=== PATIENT | male | born 1950 | race Caucasian/White ===

== ENCOUNTER 2018-03-11 11:13 | Inpatient (IN) | payer MEDICARE, BC ==
[2018-03-11] MEDS ORDERED: diPHENhydraMINE PO* 50 MG PO ONE (14:01)
--- NOTE | 2018-03-11 14:09 | ED ---
Abdominal Pain/Male - HPI Summary HPI Summary: A 67 y/o M presents to ED with c/o diffuse abd pain onset two days ago. Pt petted his cat two days ago. The pt and his had dewormed their cat on 03/06 using Profender, which is a topical medication. After touching the cat, the patient's hands became itchy. Pt also vomited large amounts of bile yesterday and today, has had diarrhea. He is bloated and has abd pain due to gas, and he is mostly releasing gas by belching and passing small amount of flatus. Pt experienced similar sx last year after deworming the cats. The spoke with [employer] help line ([phone]) this AM who stated the itchy hands were an allergic reaction, but they were unsure regarding the cause of the abd pain and vomiting and advised that he seek medical attention. Pt is s/p appendectomy. The pt denies previous colon surgeries, bowel obstruction, ulcers , GI bleed. He took Benadryl, GasX at 10:00 [employer]. He states he has not eaten for two days. Denies CP. Vital signs while in room: HR 91 bpm, BP 143/93. Home Medications Medication Instructions Recorded Confirmed Type Atorvastatin* 40 mg PO DAILY 03/11/18 03/11/18 History Dulaglutide (NF) [Trulicity (NF)] 1 dose WEEKLY 03/11/18 03/11/18 History Glimepiride (NF) 1 dose PO DAILY 03/11/18 03/11/18 History Hydrochlorothiazide TAB* 1 tab PO DAILY 03/11/18 03/11/18 History [Hydrodiuril TAB*] Metoprolol Succinate 100 mg PO DAILY 03/11/18 03/11/18 History metFORMIN* [Glucophage 1000 MG TAB 1 tab PO BID 03/11/18 03/11/18 History *] - History of Current Complaint Chief Complaint: EDAbdPain Stated Complaint: ABD PAIN Time Seen by Provider: 03/11/18 13:57 Hx Obtained From: Patient, Family/Creative Perfumer - Onset/Duration: Gradual Onset, Lasting Days, Still Present Timing: Constant Severity Initially: Moderate Severity Currently: Moderate Pain Intensity: 7 Pain Scale Used: 0-10 Numeric Location: Diffuse Radiates: No Character: Cramping, Other: - bloated Aggravating Factor(s): Nothing Alleviating Factor(s): Nothing Associated Signs And Symptoms: Positive: Vomiting, Diarrhea, Other - pos: itchy hands; gassy/belching;. Negative: Chest Pain Similar Episode/Dx As:: related to deworming cats and petting them after topical solution applied - Allergies/Home Medications Allergies/Adverse Reactions: Allergies Allergy/AdvReac Type Severity Reaction Status Date / Time No Known Allergies Allergy Verified 03/11/18 11:41 Home Medications: Home Medications Atorvastatin* 40 mg PO DAILY 03/11/18 [History Confirmed 03/11/18] Dulaglutide (NF) [Trulicity (NF)] 1 dose WEEKLY 03/11/18 [History Confirmed 05/28] Glimepiride (NF) 1 dose PO DAILY 03/11/18 [History Confirmed 03/11/18] Hydrochlorothiazide TAB* [Hydrodiuril TAB*] 1 tab PO DAILY 03/11/18 [History Confirmed 03/11/18] Metoprolol Succinate 100 mg PO DAILY 03/11/18 [History Confirmed 03/11/18] metFORMIN* [Glucophage 1000 MG TAB *] 1 tab PO BID 03/11/18 [History Confirmed 03/11/18] Aspirin 81 mg CHEW TAB* 81 mg PO DAILY 03/12/18 [History Confirmed 03/12/18] PMH/Surg Hx/FS Hx/Imm Hx Previously Healthy: No Endocrine/Hematology History: Reports: Hx Diabetes Cardiovascular History: Reports: Hx Hypercholesterolemia, Hx Hypertension - Surgical History Surgery Procedure, Year, and Place: appendectomy Infectious Disease History: No Infectious Disease History: Denies: Traveled Outside the [place] in Last 30 Days - Family History Known Family History: Positive: Cardiac Disease - mother - Social History Occupation: Employed Full-time Lives: With Family Alcohol Use: Rare Hx Substance Use: No Substance Use Type: Reports: None Hx Tobacco Use: No Smoking Status (MU): Never Smoked Tobacco Review of Systems Constitutional: Negative Negative: Chest Pain Respiratory: Negative Positive: Abdominal Pain, Vomiting, Diarrhea, Other - pos: bloated/gassy/ belching Positive: no symptoms reported Skin: Other - itching hands Neurological: Negative Psychological: Normal All Other Systems Reviewed And Are Negative: Yes Physical Exam - Summary Physical Exam Summary: Appearance: Ill-appearing, moderate pain distress, obese, vomited approx 1350cc bilious liquid in ED at one time Skin: Warm, color reflects adequate perfusion, dry, mild erythema bilat hands, no petechiae or macular papular rash Head: Normal Head/Face inspection, atraumatic Eyes: Conjunctiva clear ENT: Normal inspection Neck: Supple, no nodes, no JVD Respiratory: Lungs clear, normal breath sounds, no respiratory distress Cardio: RRR, No murmur, pulses normal, brisk capillary refill Abdomen: Distended, good bowel sounds, diffuse tenderness, no masses, no rebound Bowel sounds: Present Musculoskeletal: Strength Intact/ROM intact, no calf tenderness, swelling and erythema in bilateral hands Psychological: Normal Neuro: Alert, muscle tone normal, no focal deficit Triage Information Reviewed: Yes Vital Signs On Initial Exam: Initial Vitals Temp Pulse Resp BP Pulse Ox 97.6 F 85 18 154/86 96 03/11/18 11:21 03/11/18 11:21 03/11/18 11:21 03/11/18 11:21 03/11/18 11:21 Vital Signs Reviewed: Yes Diagnostics - Vital Signs Vital Signs Temp Pulse Resp BP Pulse Ox 03/11/18 13:17 91 143/93 94 03/11/18 13:00 89 94 03/11/18 12:47 83 137/86 93 03/11/18 12:17 82 143/92 94 03/11/18 12:00 83 94 03/11/18 11:47 84 147/91 94 03/11/18 11:46 82 94 03/11/18 11:21 97.6 F 85 18 154/86 96 - Laboratory Result Diagrams: 03/15/18 05:28 03/15/18 05:28 Lab Statement: Any lab studies that have been ordered have been reviewed, and results considered in the medical decision making process. - CT ABD/PEL CT CT Interpretation Completed By: Radiologist Summary of CT Findings: IMPRESSION: 1. Pathologic dilatation of the small bowel proximally measuring up to 4.3 cm in diameter. A transition zone is identified in the left upper quadrant. At this zone of transition there appears to be wall thickening of small bowel measuring 8 mm in thickness. The differential diagnosis for this includes infectious or inflammatory etiologies as well as neoplastic etiologies. 2. There are additional chronic and degenerative changes described in the body the report unlikely to be directly related to the patient's current clinical presentation. ED provider has reviewed this report. - EKG 1410 Cardiac Rate: NL - 86bpm EKG Rhythm: Sinus Rhythm ST Segment: Normal Ectopy: None Summary of EKG Findings: An EKG at 14:[address], nml QTc, and nml axis. No prior EKG for comparison. Re-Evaluation - Re-Evaluation 1 Re-Evaluation Time: 14:38 Change: Unchanged Comment: Vomited large amount after drinking one cup of contrast, alleviated some abd pain but not all. No blood in vomit. Upon visualizing, estimated >1000 ccs of bile.(per RN 1350cc) 2 Re-Evaluation Time: 18:23 Change: Improved Comment: Discussing CT results and plans to admit pt. Pt agreeable to this plan. Daughter now at bedside. Abdominal Pain Fem Course/Dx - Course Course Of Treatment: Pt is a 67 y/o M presenting with possible allergic reaction /poisoning to Profender, cat deworming medications. Pt c/o diffuse abd pain onset two days ago after petted his cat. Associated: itchy hands, v/d, bloating , excess belching. Per , posion control stated the itchy hands were likely an allergic reaction, but they were unsure regarding the cause of the abd pain. Lab work shows elevated RBC, INR: 1.12, BUN/Creatinine: 27.7, glucose: 150, CRP: 32.15. ABD/PEL CT shows "1. Pathologic dilatation of the small bowel proximally measuring up to 4.3 cm in diameter. A transition zone is identified in the left upper quadrant. At this zone of transition there appears to be wall thickening of small bowel measuring 8 mm in thickness. The differential diagnosis for this includes infectious or inflammatory etiologies as well as neoplastic etiologies. 2. There are additional chronic and degenerative changes described in the body the report unlikely to be directly related to the patient' s current clinical presentation." UA shows 2+ protein, specific gravity is elevated, squamous epithelia is present. Discussed with Dr. Asrhaf surgeon concrete rubber, who recommends medical admit with GI consult, decompression with NG tube. Will consult if needed. Consulted Dr. Schumacher, hospitalist, who will admit pt. UA reviewed. Allergies noted, high blood pressure noted. Pt medications reviewed this visit. - Diagnoses Differential Diagnosis/HQI/PQRI: Bowel Obstruction, Diverticulitis, Ischemic Bowel Provider Diagnoses: Partial small bowel obstruction, Irritant hand dermatitis - Provider Notifications Discussed Care Of Patient With: Samy Ashraf - surgery Time Discussed With Above Provider: 18:03 Instructed by Provider To: Other - Recommends admission to hospitalist, no acute surgical intervention, NG suction, and further evaluation. Discharge - Sign-Out/Discharge Documenting (check all that apply): Patient Departure - ADM - Discharge Plan Condition: Improved Disposition: HOME - Billing Disposition and Condition Condition: IMPROVED Disposition: Home - Attestation Statements Document Initiated by Scribe: Yes Documenting Scribe: Annika Mckeon Provider For Whom Scribe is Documenting (Include Credential): Dr. Josefa Montes De Oca MD Scribe Attestation: Annika Rucker, scribed for Dr. Josefa Montes De Oca MD on 03/17/18 at 0108. Scribe Documentation Reviewed: Yes Provider Attestation: The documentation as recorded by the Annika bradley accurately reflects the service I personally performed and the decisions made by , Dr. Josefa Montes De Oca MD Consult Consult: 1803: Consult with Dr. Schumacher, hospitalist Will admit pt.
[2018-03-11 14:37] LABS: ABS Basophils 0 10^3/ul (0-0.2); ABS Eosinophils 0.2 10^3/ul (0-0.6); ABS Monocytes 0.7 10^3/ul (0-0.8); ABS Neutrophils 7.5 10^3/ul (1.5-7.7); ABS Nucleated RBC 0 10^3/ul; Eosinophil % 1.7 % (0-6); Hematocrit 48 % (42-52); Hemoglobin 16.5 g/dl (14.0-18.0); Lymphocyte % 10.7 % (25-47); Mean Corpuscular HGB Conc 35 g/dl (31-36); Mean Corpuscular Hemoglobin 30 pg (27-31); Mean Corpuscular Volume 88 fL (80-94); Mean Platelet Volume 8.7 um3 (7.4-10.4); Nucleated Red Blood Cells % 0.1; Platelet Count 191 10^3/ul (150-450); Red Blood Count 5.44 10^6/ul (4.00-5.40); Red Cell Distribution Width 14 % (10.5-15); White Blood Count 9.5 10^3/ul (3.5-10.8)
[2018-03-11 14:49] LABS: EGFR Non-African American 92.1 (>60); INR 1.12 (0.77-1.02)
[2018-03-11] MEDS ORDERED: Ondansetron INJ* 2 MG/ML VIAL ONE (15:23)
[2018-03-11] MEDS ORDERED: Ondansetron INJ* 2 MG/ML VIAL IV ONE (15:28)
[2018-03-11] MEDS ORDERED: Iodixanol* (CONTRAST) 320 MG/ML 100 ML SDV IV ONE (17:32)
--- NOTE | 2018-03-11 17:55 | RAD ---
CLINICAL HISTORY: Vomiting and bloating COMPARISON: None TECHNIQUE: Contrast enhanced CT examination of the abdomen and pelvis from the lung bases through the initial tuberosities. The patient received 141 mL of Visipaque 320 intravenously prior to imaging.The patient received oral contrast as well prior to imaging. FINDINGS: VISUALIZED LUNG BASES: The visualized lung bases are grossly clear. There is no pleural effusion. ABDOMEN AND PELVIS: The liver, spleen, pancreas and right adrenal gland are grossly normal in appearance. At the left adrenal gland there is a fat density 1 cm nodule consistent with a lipoma. The gallbladder is normal. The kidneys are normal in appearance without focal mass, calcification or signs of hydronephrosis. There is pathologic dilatation of the proximal small bowel measuring up to 4.3 cm in diameter. A transition point is potentially identified at the left upper quadrant (axial image 34 and coronal image 45). At this point there is apparent wall thickening of the small bowel measuring 8 mm in thickness. More distally the small bowel is decompressed. The mostly decompressed gas and stool-filled colon is otherwise unremarkable except for scattered diverticula in the rectosigmoid colon that do not exhibit acute inflammatory changes. The appendix is not discretely visualized and there is surgical material at the base of the cecum. There is no gross retroperitoneal or mesenteric lymphadenopathy. The pelvic viscera is normal in appearance. The abdominal aorta and iliac arteries are normal in course and diameter. Degenerative changes include multilevel loss of intervertebral disc height involving the lower thoracic and lumbar spine.There are no sinister bone lesions. IMPRESSION: 1. Pathologic dilatation of the small bowel proximally measuring up to 4.3 cm in diameter. A transition zone is identified in the left upper quadrant. At this zone of transition there appears to be wall thickening of small bowel measuring 8 mm in thickness. The differential diagnosis for this includes infectious or inflammatory etiologies as well as neoplastic etiologies. 2. There are additional chronic and degenerative changes described in the body the report unlikely to be directly related to the patient's current clinical presentation.
[2018-03-11 18:32] LABS: Urine Appearance Cloudy; Urine Blood Negative (Negative); Urine Color Amber; Urine Ketones Negative (Negative); Urine Protein 2+(100 mg/dL) (Negative); Urine Red Blood Cell Absent (Absent); Urine Specific Gravity 1.059 (1.010-1.030); Urine Urobilinogen Negative (Negative); Urine White Blood Cell Absent (Absent)
[2018-03-11] MEDS ORDERED: Morphine INJ* 2 MG/ML 1 ML SYRINGE (TWO MG - NEW SYRINGE VERSION) IV PRN (20:27)
[2018-03-11] MEDS ORDERED: Ondansetron INJ* 2 MG/ML VIAL IV PRN (20:27)
[2018-03-11] MEDS ORDERED: Magnesium Sulfate 1 GM IV* 1 GM/100 ML BAG IV ONE (20:29)
[2018-03-11] MEDS ORDERED: Dextrose 50% Syringe 50 ML* 25 GM/50 ML SYRINGE IV PUSH PRN (20:30)
[2018-03-11] MEDS ORDERED: Calamine LOTION* 120 ML TOPICAL PRN (20:30)
[2018-03-11] MEDS ORDERED: Metoprolol Tartrate IV* 1 MG/ML 5 ML VIAL IV SCH (21:00)
[2018-03-11] MEDS ORDERED: Famotidine IV * 20 MG in NS 0.9% 100 ML* 100 ML IVPB SCH (21:00)
[2018-03-11] MEDS ORDERED: Ketorolac INJ* 15 MG/ML 1 ML VIAL IV PUSH ONE (22:47)
[2018-03-11] MEDS: NS 0.9% 1000 ML* 1,000 ML IV SCH (23:01)
[2018-03-11] MEDS ORDERED: Ketorolac INJ* 15 MG/ML 1 ML VIAL ONE (23:13)
[2018-03-11] MEDS: Insulin LISPRO* 1 UNITS UNIT SUBCUT SCH (23:28)
[2018-03-11] MEDS: Heparin VIAL(*) 5000 UNITS/ML VIAL (FIVE THOUSAND) SUBCUT SCH (23:29)
[2018-03-11] MEDS: Famotidine IV* 10 MG/ML 2 ML (20 mg) IV SLOW PU SCH (23:32)
[2018-03-11] MEDS: Metoprolol Tartrate IV* 1 MG/ML 5 ML VIAL IV SCH (23:33)
--- NOTE | 2018-03-12 04:48 | HP ---
CC: Christine Che DO; Terri Cantrell MD * HISTORY AND PHYSICAL: DATE OF ADMISSION: 03/11/18 PRIMARY CARE PROVIDER: Christine Che DO CHIEF COMPLAINT: Abdominal pain, nausea, vomiting. HISTORY OF PRESENT ILLNESS: Jj Ariza is a 67-year-old male with history of diabetes, hypertension, obesity, and dyslipidemia, who presented complaining of nausea and vomiting intermittently for the past 3 days. The patient also complains of lower abdominal pain, which is in a band-like fashion and feels like "soreness." He stated that he also has epigastric pain when he is about to throw up and then makes the pain go away after he vomits. He has had couple of loose bowel movements a day for the past 3 days, today very little bowel movement, also loose. He is passing "a little flatus." He feels that his abdomen is distended and has "a lot of gas in it." The patient also complains of itchiness of the skin of his bilateral palm that started occurring when he was using a deworming topical medication for his cats. The medication is called Profender, which is combination of emodepside and praziquantel. The solution is topical. He stated that last year, the same reaction happened. He used the medication topically on his cats and then he was patting them and he developed hand pruritus. He used Benadryl on an as- needed basis for the past 3 days. He is going to be admitted with a diagnosis of partial small bowel obstruction. The CT of the abdomen showed dilated loop of small bowel 4.3 cm with transition zone noted with thickening of small bowel up to 8 mm of the wall thickening. Gastroenterology employee relations consultant will see the patient with further recommendations. PAST MEDICAL HISTORY: 1. Hypertension. 2. Hyperlipidemia. 3. Diabetes type 2. 4. History of appendectomy 6 years ago. 5. 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 MEDICATIONS: Include: 1. Metformin 1000 mg b.i.d. 2. Trulicity 1 injection weekly. 3. Atorvastatin 40 mg daily. 4. Metoprolol succinate 100 mg daily. 5. Hydrochlorothiazide 25 mg daily. 6. Glimepiride 2 mg daily. ALLERGIES: No known drug allergies. FAMILY HISTORY: Positive for mother with history of lung cancer, who at the age of 64 due to the cancer. Father who of old age at the age of 92. SOCIAL HISTORY: The patient smoked remotely in his youth. He denies any drug use. He drinks alcohol rarely, usually on holidays like and . He lives with his , who is his surrogate. 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 REVIEW OF SYSTEMS: Please see history of present illness. All the other 12 systems reviewed with the patient and were otherwise negative. PHYSICAL EXAMINATION GENERAL: The patient is a very pleasant 67-year-old male with a BMI of 37.8 kg/ m2. The patient is in no acute distress. Alert, awake, and oriented x3. VITAL SIGNS: Blood pressure of 143/95, heart rate of 90 and regular, respiratory rate 18, oxygen saturation 97% on room air, temperature of 97.6. HEENT: Head atraumatic, normocephalic. Eyes: Pupils are equal and reactive to light and accommodation. Oropharynx clear. Mucosa moist. NECK: Supple. No JVD. No bruits bilaterally. RESPIRATORY: Clear to auscultation bilaterally. CARDIOVASCULAR: Regular rate and rhythm. No murmur. ABDOMEN: Soft, minimally tender in the bilateral lower quadrants with no rebound and no guarding. Bowel sounds are present in all 4 quadrants, rather hypoactive, dull, otherwise distended, tympanic to percussion throughout. EXTREMITIES: There is no edema. Pulses +2 bilaterally. No clubbing or cyanosis. NEUROLOGIC: Speech clear. Cranial nerves II through XII grossly intact. Motor strength is 5/5 bilaterally. SKIN: On evaluation of the skin, the patient has some scant erythema noted on his palms without a clear distinguished raised rash or other lesions. There are no other rashes noted on skin evaluation. PSYCHIATRIC: Alert and oriented x3 with no evidence of anxiety or depression. DIAGNOSTIC STUDIES/LAB DATA: White blood cell count of 9.5, hemoglobin 16.5, hematocrit 48, and platelets 191. Sodium was 137, potassium 3.7, chloride 99, carbon dioxide 28, BUN 23, creatinine 0.83. Liver function tests unremarkable. Magnesium of 1.8, C-reactive protein of 32. Troponin of 0. Lipase of 11. Urinalysis grossly unremarkable apart from high specific gravity of 1.059 and + [address] of the abdomen and pelvis obtained in the ED, impression: "Pathologic dilatation of the small bowel approximately measuring up to 4.3 cm in diameter. A transition zone is identified in the left upper quadrant at the zone of transition. There appears to be wall thickening of small bowel measuring 8 mm in thickness. 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 The patient's EKG showed normal sinus rhythm, rate of 86 beats per minute with no acute ST changes. ASSESSMENT AND PLAN: 1. A 67-year-old male who presents with symptoms of partial small bowel obstruction with transition zone in small intestine with inflammatory changes in the area. I spoke with Dr. Cantrell from Gastroenterology in regards of the patient's treatment. The patient is going to be placed on overnight observation with conservative management with intravenous fluids, treatment, Pepcid intravenously as well as antiemetics for pain. NG tube was recommended, but the patient is rather reluctant to have it placed at this point and we will monitor. Gastroenterology consult will follow in the morning with further recommendations. 2. For the patient's diabetes, the patient is going to be placed on insulin sliding scale. His oral hypoglycemics are going to be held. 3. For his hypertension, the patient is going to be placed on Lopressor intravenously as scheduled instead of his Toprol-XL. 4. For DVT prophylaxis, the patient is going to be placed on heparin subcutaneously. 5. The patient's code status is full and his surrogate is his . TIME SPENT: Approximately 65 minutes were spent on admission of this patient, more than half that time was spent [id number] with the patient during the interview and physical exam. Please also note that in addition to the above-mentioned, it seems rather unlikely that the patient's topical allergic reaction on his hands due to the Profender medication for his cats could contribute to the patient's GI symptoms. We will use calamine lotion and intermittent Benadryl for skin symptoms on his bilateral hands. [id number]/CPS #: [id number] [facility]
[2018-03-12] MEDS: Metoprolol Tartrate IV* 1 MG/ML 5 ML VIAL IV SCH ×4 (05:20→23:49)
[2018-03-12] MEDS: Heparin VIAL(*) 5000 UNITS/ML VIAL (FIVE THOUSAND) SUBCUT SCH ×3 (05:26→21:49)
[2018-03-12] MEDS: Insulin LISPRO* 1 UNITS UNIT SUBCUT SCH ×4 (05:26→23:56)
[2018-03-12 06:03] LABS: ABS Basophils 0 10^3/ul (0-0.2); ABS Eosinophils 0.2 10^3/ul (0-0.6); ABS Lymphocytes 1.1 10^3/ul (1.0-4.8); ABS Monocytes 0.8 10^3/ul (0-0.8); ABS Nucleated RBC 0 10^3/ul; Eosinophil % 3.4 % (0-6); Hematocrit 45 % (42-52); Hemoglobin 15.3 g/dl (14.0-18.0); Lymphocyte % 15.1 % (25-47); Mean Corpuscular HGB Conc 34 g/dl (31-36); Mean Corpuscular Hemoglobin 30 pg (27-31); Mean Corpuscular Volume 88 fL (80-94); Mean Platelet Volume 8.9 um3 (7.4-10.4); Nucleated Red Blood Cells % 0.2; Platelet Count 182 10^3/ul (150-450); Red Cell Distribution Width 14 % (10.5-15); White Blood Count 7.1 10^3/ul (3.5-10.8)
[2018-03-12] MEDS: Famotidine IV* 10 MG/ML 2 ML (20 mg) IV SLOW PU SCH (09:01)
[2018-03-12] MEDS: NS 0.9% 1000 ML* 1,000 ML IV SCH ×2 (10:01→20:15)
--- NOTE | 2018-03-12 10:39 | PN ---
Subjective Date of Service: 03/12/18 Interval History: Pt resting comfortably. No acute distress. Ambulating in hallway easily. Reports pain has improved greatly since last night. Has not required any pain medication this morning. Does still endorse soreness in lower abdomen, R >L. Denies nausea/vomiting. Passing flatus and eruticating, however has not had BM today. Denies chest pain, shortness of breath, dizziness, headache. Objective Active Medications: Calamine (Calamine Lotion*) 1 applic TOPICAL QID PRN PRN Reason: itchy skin Dextrose (D50w Syringe 50 Ml*) 12.5 gm IV PUSH .FOR FS < 60 - SS PRN PRN Reason: FS < 60 Famotidine (Pepcid Iv*) 20 mg IV SLOW PU DAILY [facility] Last Admin: 03/12/18 09:01 Dose: 20 mg Heparin Sodium (Porcine) (Heparin Vial(*)) 5,000 units SUBCUT Q8HR [facility] Last Admin: 03/12/18 05:26 Dose: 5,000 units Sodium Chloride (Ns 0.9% 1000 Ml*) 1,000 mls @ 100 mls/hr IV PER RATE [facility] Last Admin: 03/12/18 10:01 Dose: 100 mls/hr Insulin Human Lispro (Humalog*) 0 units SUBCUT Q6HR [facility]; Protocol Last Admin: 03/12/18 05:26 Dose: 1 unit Metoprolol Tartrate (Lopressor Iv*) 5 mg IV 0530,1130,1730,2330 [facility] Last Admin: 03/12/18 05:20 Dose: 5 mg Morphine Sulfate (Morphine Inj ((Syringe))*) 1 mg IV Q4H PRN PRN Reason: PAIN - MILD Ondansetron HCl (Zofran Inj*) 4 mg IV Q6H PRN PRN Reason: NAUSEA/VOMITING Vital Signs - 8 hr 03/12/18 03/12/18 03:38 05:13 Temperature 98.5 F Pulse Rate 78 89 Respiratory 16 Rate Blood Pressure 133/73 154/70 (mmHg) O2 Sat by Pulse 95 94 Oximetry Oxygen Devices in Use Now: None Eyes: No Scleral Icterus, PERRLA Ears/Nose/Mouth/Throat: NL Teeth, Lips, Gums, Mucous Membranes Moist Neck: NL Appearance and Movements; NL JVP, Trachea Midline Respiratory: Symmetrical Chest Expansion and Respiratory Effort, Clear to Auscultation Cardiovascular: NL Sounds; No Murmurs; No JVD, RRR, No Edema Abdominal: - - Hypoactive bowel sounds x4. Abdomen soft but distended. Tender to palpation in bilateral lower quadrants. No rebound or guarding. Extremities: No Edema, No Clubbing, Cyanosis Skin: No Rash or Ulcers, No Nodules or Sclerosis Neurological: Alert and Oriented x 3, NL Muscle Strength and Tone Lines/Tubes/Other Access: Clean, Dry and Intact Peripheral IV Nutrition: - - NPO Result Diagrams: 03/12/18 05:28 03/12/18 05:28 Assess/Plan/Problems-Billing Assessment: - Patient Problems (1) Partial small bowel obstruction Current Visit: Yes Status: Acute Code(s): K56.600 - PARTIAL INTESTINAL OBSTRUCTION, UNSPECIFIED TO CAUSE SNOMED Code(s): 545762668 Comment: - CT with pathologic dilation of small bowel proximally with transition zone in left upper quadrant with wall thickening of small bowel. Differntial includes infectious, inflammatory or neoplastic. Small bowel decompressed distally. - Abdominal pain improved since yesterday. Has not required pain medication today, but still with mild soreness in lower quadrants. N/V resolved. Hypoactive BS x4. - Afberile without leukocytosis. VSS. Electrolytes WNL. - Pending GI consult, appreciate recommendations. On phone last night recommended NPO, IVF, IV pepcid and PRN pain control and zofran. Will continue those. Pt refused NG tube for decomplression. (2) Diabetes Current Visit: Yes Status: Acute Code(s): E11.9 - TYPE 2 DIABETES MELLITUS WITHOUT COMPLICATIONS SNOMED Code(s): 26107495 Comment: - BS < 180 - Continue fingersticks and lispro sliding scale Q6H while NPO (3) HTN (hypertension) Current Visit: Yes Status: Acute Code(s): I10 - ESSENTIAL (PRIMARY) HYPERTENSION SNOMED Code(s): 03042319 Comment: - Home meds on hold while NPO - BP well controlled on IV lopressor (4) Obesity (BMI 30-39.9) Current Visit: Yes Status: Acute Code(s): E66.9 - OBESITY, UNSPECIFIED SNOMED Code(s): 977263057 Comment: - BMI 37 (5) DVT prophylaxis Current Visit: Yes Status: Acute Code(s): DKY8495 - SNOMED Code(s): 604710116 Comment: - Heparin SQ (6) Full code status Current Visit: Yes Status: Acute Code(s): Z78.9 - OTHER SPECIFIED HEALTH STATUS SNOMED Code(s): 197831000 Status and Disposition: Obs. Anticipate discharge to home when medically stable. Attending: Michelle Reddy
--- NOTE | 2018-03-12 16:02 | RAD ---
Indication: Partial small bowel obstruction. Comparison: March 11, [address] Technique: Supine view of the abdomen. Report: No significant change in magnitude of long segment small bowel dilatation. Small volume of stool visualized within the colon. Unremarkable soft tissue contours. IMPRESSION: #. No significant radiographic change in magnitude of small bowel obstruction.
--- NOTE | 2018-03-12 23:03 | CONS ---
CONSULTATION REPORT: DATE OF CONSULT: 03/12/18 REQUESTING PHYSICIAN: Dr. Burris. REASON FOR CONSULTATION: Partial small bowel obstruction. HISTORY OF PRESENT ILLNESS: This is a pleasant 67-year-old male with a past medical history of diabetes, hypertension, obesity, dyslipidemia, who presented to the emergency room with nausea and vomiting over the past 3 days. The patient states this happened to him about a year ago as well and states that he has some lower abdominal discomfort in a band-like fashion. He described it as a soreness. The pain is 4/10, nothing makes it better or worse, it is not relieved with his bowels; however, he states over the last few days, he has passed 1 hard stool, but very little flatus or any other bowel movements. He denies any wali melena or hematochezia. He denies any reflux or dyspepsia on a significant basis. He states that the last time this happened, he was using a deworming medication for his cats, which was a combination of emodepside and praziquantel topical solution. He states that he had a skin reaction to this and then he also had nausea, but not as much the abdominal discomfort last time. On further questioning, he admits that he had a little bit of diarrhea before this as well for the last 4 or 5 days. He does have cats at home, they go outside. He also states he has well water. He states it is not chlorinated and he does not have any UV irradiation to the well water as well. 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 He denies any weight loss or gain. He states that he had a colonoscopy roughly 5 to 6 years ago at [facility], but does not recall the provider that performed this service. He states that the pain today is much better. He states that he has passed a scant amount of gas, but has had no significant bowel movement. He admits that he is quite hungry. No dysphagia , no odynophagia. The remainder of the 14-point review of systems is grossly negative. PAST MEDICAL HISTORY: 1. Hypertension. 2. Hyperlipidemia. 3. Diabetes mellitus type 2. 4. Colonoscopy per the patient 5 to 6 years ago at [place]. 5. History of appendectomy 6 years ago. 6. 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 MEDICATIONS: Include: 1. Metformin. 2. Trulicity. 3. Atorvastatin. 4. Metoprolol. 5. Hydrochlorothiazide. 6. Glimepiride. ALLERGIES: No known drug allergies. FAMILY HISTORY: No history of GI, cancer, malignancy, or IBD. SOCIAL HISTORY: Distant smoker. Denies any drug use. Social alcohol use, but very rare. 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 REVIEW OF SYSTEMS: See the history of present illness. Remainder of the 14- point review of systems is grossly negative unless otherwise described. PHYSICAL EXAM: Vital Signs: Blood pressure is 153/74, pulse is 81, respiratory rate is 17, oxygen on room air is 96%, temperature is 98 degrees. In general, he is alert and oriented, in no acute distress. He is able to sit up and ambulate around the room with minimal discomfort. HEENT: Atraumatic, normocephalic. Pupils are equal, round, reactive to light. Extraocular movements are intact. Neck: Supple. Trachea midline. Cardiovascular: Regular rate and rhythm. S1, S2. Respiratory: Grossly clear to auscultation bilaterally. Abdomen: Obese, soft. Minimal diffuse tenderness. Bowel sounds are hypoactive. There is no shifting, dullness and there is no guarding or rebound. Extremities: 1+ edema bilaterally. Skin: Scant ecchymosis, otherwise negative. Neuro Exam: Grossly nonfocal. Moves all extremities. Psych: Appropriate mood and affect. DIAGNOSTIC STUDIES/LAB DATA: WBC count is 7.1, hemoglobin is 15.3, platelet count is 182. INR is 1.12. Chemistry: Sodium 137, potassium 3.9, chloride 98 , CO2 32, BUN 27, creatinine 0.97, glucose 150, calcium 8.9. His CRP on admission was 32.15. Magnesium is 1.8. He had a CT of the abdomen and pelvis done on 03/11/18. I reviewed the CT personally with the on-call radiologist today and the transition points for the partial small bowel obstruction is likely in the distal jejunum. The impression is pathologic dilatation of the small bowel measuring up to 4.3 cm in diameter with wall thickening of this area as well with the differential of inflammatory, infectious, or neoplastic etiologies. IMPRESSION AND PLAN: This is a 67-year-old male with a partial small bowel obstruction. Partial small bowel obstruction. He only had an appendectomy, adhesion possible. I had recommended NG initially and this was also recommended by hospitalist but the patient seemed hesitant to this. He states he does feel a little bit better today and has started to pass some slight flatus. We will check an abdominal x-ray today and tomorrow morning; if there is no significant change, we would recommend NG tube placement at that point and the patient is agreeable to this. Keep n.p.o. for now to see if we can get up to move bowels. Optimized electrolytes including magnesium from admission. In terms of etiology, I would also pursue an infectious workup if we are able to facilitate a bowel movement. We will send the stool for giardia and stool ova and parasites given he has untreated well water at home that he drinks along with his animal exposures. The plan if we can get him over this acute episode of his partial small bowel obstruction would be to repeat a CT exam as an outpatient in 3 to 4 weeks to see if there is still persistence of this abnormality. If there is persistence of this abnormality would surgical evaluation. [id number]/[facility] #: [id number] [facility]
[2018-03-13] MEDS: Insulin LISPRO* 1 UNITS UNIT SUBCUT SCH ×3 (05:45→18:03)
[2018-03-13] MEDS: Metoprolol Tartrate IV* 1 MG/ML 5 ML VIAL IV SCH ×3 (05:53→18:15)
[2018-03-13] MEDS: Heparin VIAL(*) 5000 UNITS/ML VIAL (FIVE THOUSAND) SUBCUT SCH ×3 (05:57→22:10)
[2018-03-13] MEDS: NS 0.9% 1000 ML* 1,000 ML IV SCH ×2 (05:58→19:22)
[2018-03-13] MEDS: Famotidine IV* 10 MG/ML 2 ML (20 mg) IV SLOW PU SCH (09:25)
--- NOTE | 2018-03-13 11:51 | RAD ---
INDICATION: Follow-up small bowel obstruction COMPARISON: Most recent comparison radiograph is March 12, 2018 TECHNIQUE: 3 views the abdomen were obtained. FINDINGS: Gas-filled loops of small bowel measure up to 6 cm in diameter similar to the previous radiograph. There is no evidence of free air. Gas and stool seen overlying the rectum. IMPRESSION:PERSISTENT DILATED GAS-FILLED LOOPS OF SMALL BOWEL MEASURE UP TO 6 CM IN DIAMETER NOT SIGNIFICANT CHANGE FROM THE PREVIOUS DAY KUB.
--- NOTE | 2018-03-13 13:49 | RAD ---
INDICATION: Check NGT placement COMPARISON: None. TECHNIQUE: Single AP portable view of the chest was obtained. FINDINGS: Image quality is compromised due to the relative inferiority of a portable chest x-ray. There is a gastric tube with the tip terminating over the left upper quadrant at the expected location of the gastric fundus. The heart and mediastinum exhibit normal size and contour. The lungs are grossly clear. There is no evidence of a large pleural effusion. Visualized bones are normal for the patient's age. IMPRESSION: Gastric tube terminates below the level of the left hemidiaphragm at the expected location of the gastric fundus.
--- NOTE | 2018-03-13 15:21 | PN ---
Subjective Date of Service: 03/13/18 Interval History: Mr. Ariza feels better today. His is at bedside. He reports multiple formed BMs overnight and this morning. He denies pain. He is frustrated that he feels as though he is improving and does not feel as though he needs an NG tube as ordered by GI. He would like to go home and wait a few days to see if he feels better on his own, and return to the ER if he does not improve. He does agree to stay another night, though is hesitant. Family History: Unchanged from Admission Social History: Unchanged from Admission Past Medical History: Unchanged from Admission Objective Active Medications: Calamine (Calamine Lotion*) 1 applic TOPICAL QID PRN Dextrose (D50w Syringe 50 Ml*) 12.5 gm IV PUSH .FOR FS < 60 - SS PRN Famotidine (Pepcid Iv*) 20 mg IV SLOW PU DAILY ANDRE[facility] Heparin Sodium (Porcine) (Heparin Vial(*)) 5,000 units SUBCUT Q8HR [facility]RE[facility] Sodium Chloride (Ns 0.9% 1000 Ml*) 1,000 mls @ 100 mls/hr IV PER RATE COUNT INCLUDES THE [facility] Insulin Human Lispro (Humalog*) 0 units SUBCUT Q6HR ANDRE[facility]; Protocol Metoprolol Tartrate (Lopressor Iv*) 5 mg IV 0530,1130,1730,2330 ANDRE[facility] Morphine Sulfate (Morphine Inj ((Syringe))*) 1 mg IV Q4H PRN Ondansetron HCl (Zofran Inj*) 4 mg IV Q6H PRN Vital Signs - 8 hr 03/13/18 03/13/18 03/13/18 07:18 08:05 11:45 Temperature 97.6 F 96.4 F Pulse Rate 79 74 Respiratory 18 16 16 Rate Blood Pressure 153/78 136/77 (mmHg) O2 Sat by Pulse 97 97 Oximetry Oxygen Devices in Use Now: None Appearance: Elderly male sitting in bed in NAD Eyes: No Scleral Icterus Ears/Nose/Mouth/Throat: Mucous Membranes Moist Neck: NL Appearance and Movements; NL JVP, Trachea Midline Respiratory: Symmetrical Chest Expansion and Respiratory Effort, Clear to Auscultation Cardiovascular: NL Sounds; No Murmurs; No JVD, RRR Abdominal: - - Mildly tender throughout; hypoactive bowel sounds Extremities: No Clubbing, Cyanosis Skin: No Rash or Ulcers Neurological: Alert and Oriented x 3 Lines/Tubes/Other Access: Clean, Dry and Intact Peripheral IV Nutrition: Taking PO's Result Diagrams: 03/12/18 05:28 03/12/18 05:28 Assess/Plan/Problems-Billing Assessment: Mr. Ariza is a 67yo with PMH of DM2, HTN, HLD, and obesity who presented to the ER with c/o 3 days of N/V and pain and was found to have a partial SBO which has not improved with conservative management. - Patient Problems (1) Partial small bowel obstruction Current Visit: Yes Status: Acute Priority: High Code(s): K56.600 - PARTIAL INTESTINAL OBSTRUCTION, UNSPECIFIED TO CAUSE SNOMED Code(s): 474393391 Comment: - CT with pathologic dilation of small bowel proximally with transition zone in left upper quadrant with wall thickening of small bowel; differntial includes infectious, inflammatory or neoplastic; small bowel decompressed distally - Abdominal pain and N/V improved; hypoactive BS x4. - Afberile without leukocytosis - Pending GI consult, appreciate recommendations; continue NPO, IVF, IV pepcid and PRN pain control and zofran - Patient agreeable to NG today per GI recommendation (2) Diabetes Current Visit: Yes Status: Chronic Priority: Medium Code(s): E11.9 - TYPE 2 DIABETES MELLITUS WITHOUT COMPLICATIONS SNOMED Code(s): 88805468 Comment: - BS well controlled - Hold metformin and glimepiride - Continue fingersticks and lispro sliding scale Q6H while NPO (3) HTN (hypertension) Current Visit: Yes Status: Chronic Priority: Medium Code(s): I10 - ESSENTIAL (PRIMARY) HYPERTENSION SNOMED Code(s): 47569266 Comment: - Home metoprolol and HCTZ on hold while NPO - BP well controlled on IV lopressor (4) HLD (hyperlipidemia) Current Visit: Yes Status: Chronic Priority: Medium Code(s): E78.5 - HYPERLIPIDEMIA, UNSPECIFIED SNOMED Code(s): 31152434 Comment: - Atorvastatin on hold while NPO (5) Obesity (BMI 30-39.9) Current Visit: Yes Status: Chronic Priority: Medium Code(s): E66.9 - OBESITY, UNSPECIFIED SNOMED Code(s): 542021909 Comment: - BMI 37 - Supportive care (6) Full code status Current Visit: Yes Status: Acute Priority: High Code(s): Z78.9 - OTHER SPECIFIED HEALTH STATUS SNOMED Code(s): 366547026 (7) DVT prophylaxis Current Visit: Yes Status: Acute Priority: High Code(s): YTI3535 - SNOMED Code(s): 816979990 Comment: - Heparin SQ Status and Disposition: Inpatient. Anticipate discharge to home when medically stable.
[2018-03-14] MEDS: Metoprolol Tartrate IV* 1 MG/ML 5 ML VIAL IV SCH ×5 (00:27→23:59)
[2018-03-14] MEDS: Insulin LISPRO* 1 UNITS UNIT SUBCUT SCH ×5 (00:31→23:38)
[2018-03-14] MEDS: NS 0.9% 1000 ML* 1,000 ML IV SCH (04:42)
[2018-03-14] MEDS: Heparin VIAL(*) 5000 UNITS/ML VIAL (FIVE THOUSAND) SUBCUT SCH ×3 (06:15→21:13)
[2018-03-14 06:27] LABS: ABS Basophils 0 10^3/ul (0-0.2); ABS Eosinophils 0.1 10^3/ul (0-0.6); ABS Lymphocytes 0.8 10^3/ul (1.0-4.8); ABS Monocytes 0.5 10^3/ul (0-0.8); ABS Neutrophils 4.4 10^3/ul (1.5-7.7); ABS Nucleated RBC 0 10^3/ul; Eosinophil % 2.2 % (0-6); Hematocrit 38 % (42-52); Hemoglobin 13.3 g/dl (14.0-18.0); Lymphocyte % 14.1 % (25-47); Mean Corpuscular HGB Conc 35 g/dl (31-36); Mean Corpuscular Hemoglobin 30 pg (27-31); Mean Corpuscular Volume 87 fL (80-94); Mean Platelet Volume 8.6 fL (7.4-10.4); Nucleated Red Blood Cells % 0; Platelet Count 154 10^3/ul (150-450); Red Blood Count 4.39 10^6/ul (4.00-5.40); Red Cell Distribution Width 14 % (10.5-15); White Blood Count 5.9 10^3/ul (3.5-10.8)
[2018-03-14 06:45] LABS: EGFR Non-African American 126.6 (>60)
[2018-03-14] MEDS: Famotidine IV* 10 MG/ML 2 ML (20 mg) IV SLOW PU SCH (08:28)
--- NOTE | 2018-03-14 08:56 | RAD ---
INDICATION: Follow-up small bowel obstruction COMPARISON: Similar KUB March 13, 2018 is the most recent comparison exam. TECHNIQUE: 4 views the abdomen were obtained. FINDINGS: Again seen are dilated air-filled loops of small bowel measuring up to 5.8 cm in diameter. There is no free peritoneal air. The colon is grossly normal and diameter morphology. IMPRESSION:PERSISTENT AIR-FILLED DILATED LOOPS OF SMALL BOWEL MEASURING UP TO 5.8 CM IN DIAMETER NOT SUBSTANTIALLY CHANGED FROM THE 2 PREVIOUS KUB EXAMINATIONS.
--- NOTE | 2018-03-14 15:26 | PN ---
Subjective Date of Service: 03/14/18 Interval History: Mr. Ariza feels well today. According to nursing, his NG tube fell out around 0700 this morning. Nursing spoke with Dr. Badillo for further direction. The patient is still not sure why he needs an NG tube and is him and his are not understanding of the pathophysiology of SBO and require significant explanation and reassurance. He is still adamant that he would like to leave the hospital as he has a trip scheduled for Thursday. He feels as though he would be able to go home and manage with metamucil and would return to the ER if symptoms worsened. He has no pain. Denies N/V/D. Has had 2 formed BMs today. Denies CP, SOB. Family History: Unchanged from Admission Social History: Unchanged from Admission Past Medical History: Unchanged from Admission Objective Active Medications: Calamine (Calamine Lotion*) 1 applic TOPICAL QID PRN Dextrose (D50w Syringe 50 Ml*) 12.5 gm IV PUSH .FOR FS < 60 - SS PRN Famotidine (Pepcid Iv*) 20 mg IV SLOW PU DAILY [facility] Heparin Sodium (Porcine) (Heparin Vial(*)) 5,000 units SUBCUT Q8HR ANDREIA Sodium Chloride (Ns 0.9% 1000 Ml*) 1,000 mls @ 100 mls/hr IV PER RATE [facility] Insulin Human Lispro (Humalog*) 0 units SUBCUT Q6HR [facility]; Protocol Metoprolol Tartrate (Lopressor Iv*) 5 mg IV 0530,1130,1730,2330 ANDREIA Morphine Sulfate (Morphine Inj ((Syringe))*) 1 mg IV Q4H PRN Ondansetron HCl (Zofran Inj*) 4 mg IV Q6H PRN Vital Signs - 8 hr 03/14/18 03/14/18 08:00 11:10 Temperature 97.8 F 97.2 F Pulse Rate 75 81 Respiratory 17 16 Rate Blood Pressure 151/74 153/71 (mmHg) O2 Sat by Pulse 97 96 Oximetry Oxygen Devices in Use Now: None Appearance: Elderly male sitting in bed in NAD Eyes: No Scleral Icterus Ears/Nose/Mouth/Throat: Mucous Membranes Moist Neck: NL Appearance and Movements; NL JVP Respiratory: Symmetrical Chest Expansion and Respiratory Effort, Clear to Auscultation Cardiovascular: NL Sounds; No Murmurs; No JVD, RRR Abdominal: NL Sounds; No Tenderness; No Distention Extremities: No Edema Skin: No Rash or Ulcers Neurological: Alert and Oriented x 3 Lines/Tubes/Other Access: Clean, Dry and Intact Peripheral IV Result Diagrams: 03/14/18 05:27 03/14/18 05:27 Assess/Plan/Problems-Billing Assessment: Mr. Ariza is a 67yo with PMH of DM2, HTN, HLD, and obesity who presented to the ER with c/o 3 days of N/V and pain and was found to have a partial SBO which has not improved with conservative management. - Patient Problems (1) Partial small bowel obstruction Current Visit: Yes Status: Acute Priority: High Code(s): K56.600 - PARTIAL INTESTINAL OBSTRUCTION, UNSPECIFIED TO CAUSE SNOMED Code(s): 380154488 Comment: - Afberile without leukocytosis, VSS, no pain - CT with pathologic dilation of small bowel proximally with transition zone in left upper quadrant with wall thickening of small bowel; differntial includes infectious, inflammatory or neoplastic; small bowel decompressed distally - Abd xray today shows no change from yesterday; awaiting further direction from GI - Appreciate GI consult and recommendations; continue NPO, IVF, IV pepcid and PRN pain control and zofran; will change IVF from NS to LR (2) Diabetes Current Visit: Yes Status: Chronic Priority: Medium Code(s): E11.9 - TYPE 2 DIABETES MELLITUS WITHOUT COMPLICATIONS SNOMED Code(s): 33274038 Comment: - BS well controlled - Hold metformin and glimepiride - Continue fingersticks and lispro sliding scale Q6H while NPO (3) HTN (hypertension) Current Visit: Yes Status: Chronic Priority: Medium Code(s): I10 - ESSENTIAL (PRIMARY) HYPERTENSION SNOMED Code(s): 23586930 Comment: - Home metoprolol and HCTZ on hold while NPO - BP well controlled on IV lopressor (4) HLD (hyperlipidemia) Current Visit: Yes Status: Chronic Priority: Medium Code(s): E78.5 - HYPERLIPIDEMIA, UNSPECIFIED SNOMED Code(s): 43213581 Comment: - Atorvastatin on hold while NPO (5) Obesity (BMI 30-39.9) Current Visit: Yes Status: Chronic Priority: Medium Code(s): E66.9 - OBESITY, UNSPECIFIED SNOMED Code(s): 205791388 Comment: - BMI 37 - Supportive care (6) Full code status Current Visit: Yes Status: Acute Priority: High Code(s): Z78.9 - OTHER SPECIFIED HEALTH STATUS SNOMED Code(s): 912293719 (7) DVT prophylaxis Current Visit: Yes Status: Acute Priority: High Code(s): BLM4299 - SNOMED Code(s): 979368028 Comment: - Heparin SQ Status and Disposition: Inpatient. Anticipate discharge to home when medically stable.
[2018-03-14] MEDS ORDERED: Morphine VIAL* 4 MG/ML VIAL (1 ml vial) IV PRN (15:34)
--- NOTE | 2018-03-14 22:25 | CONS ---
CC: [facility] * CONSULTATION REPORT: DATE OF CONSULT: 03/14/18 REFERRING PROVIDER: Dr. Hank Badillo - GI. REASON FOR CONSULT: Persistent partial small bowel obstruction. HISTORY OF PRESENT ILLNESS: Mr. Jj Ariza is a 67-year-old gentleman with history of diabetes, hypertension, obesity, and dyslipidemia, presenting to the emergency room last with several days of nausea, vomiting, and loose bowel movements. He had some lower abdominal discomfort, felt like a soreness, but not severe crampy abdominal pain. He was drawing up some bilious fluid and passing a small amount of flatus. In the emergency room, he underwent a CT scan of the abdomen and pelvis, which showed possibility of intussusception in the more proximal small bowel but it was unclear whether this was obstructive in nature. There was what appeared to be a proximal small bowel dilation of the distal collapsed bowel with air in the colon but no other acute findings. He was admitted to the medical service with GI consultation. He had a nasogastric tube in for several days, which drained a minimal amount. inadvertently was removed today and he has not had any problems with nausea or vomiting or abdominal discomfort. He has been kept n.p.o., however. 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 He states he has been having some loose bowel movements and passing a moderate amount of flatus today. Surgical consultation was obtained. PAST MEDICAL HISTORY: 1. Hypertension. 2. Hyperlipidemia. 3. Type 2 diabetes. PAST SURGICAL HISTORY: Laparoscopic appendectomy in 2010. MEDICATIONS: Include: 1. Metformin. 2. Trulicity. 3. Atorvastatin. 4. Metoprolol. 5. Hydrochlorothiazide. ALLERGIES: He has no known drug allergies. SOCIAL HISTORY: He is . He does not smoke or use alcohol. 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 He lives with his in [place], [place], with his surrogate. REVIEW OF SYSTEMS: Otherwise unremarkable. PHYSICAL EXAM: Temperature 98.2, pulse 73, blood pressure 150/66. In general, he is a well-developed, well-nourished male, who is very pleasant and conversant. He appears to be in no apparent distress. He is standing at the bedside. His lungs are clear to auscultation with normal respiratory effort. Heart with regular rate and rhythm without murmurs, rubs, or gallops. Abdomen is obese. I do not appreciate an umbilical hernia. It is difficult to appreciate the previous laparoscopic appendectomy incisions. There are no hernias. He had hyperactive bowel sounds throughout, which are not high- pitched or tinkling. He is soft and his abdomen is somewhat protuberant but not particularly distended. There is no tenderness noted. I appreciate no inguinal hernias. IMPRESSION: High-grade partial small bowel obstruction that has been present for the last several days. I had a discussion with the patient and his about management of what most likely is an adhesive small bowel obstruction; however, there is a finding of worrisome possible intussusception and/or mass in the more proximal small bowel. He is certainly not completely resolved. He has obstructive pattern on his plain abdominal x-rays and I suspect that if he was given a more substantial diet, he would develop nausea and vomiting and become symptomatic. He would desperately like to try to avoid surgery as he has plans for travel somewhat later in the month with his . He does not quite understand why surgery may be indicated when he feels so well. PLAN: At this point, I think before making a decision for surgery, as certainly there is no urgency to this decision at this point by his clinical exam and appearance that we would repeat a CT scan of the abdomen and pelvis with oral and IV contrast and proceed accordingly from there. He is comfortable with this and I will order this for tomorrow. For now, he will be kept n.p.o. and continue on the IV fluids. I discussed all of the above with Dr. Badillo from GI. [id number]/[facility] #: [id number] [facility]
[2018-03-15] MEDS: Metoprolol Tartrate IV* 1 MG/ML 5 ML VIAL IV SCH ×2 (05:46→12:47)
[2018-03-15] MEDS: Heparin VIAL(*) 5000 UNITS/ML VIAL (FIVE THOUSAND) SUBCUT SCH ×2 (05:51→14:17)
[2018-03-15] MEDS: Insulin LISPRO* 1 UNITS UNIT SUBCUT SCH ×2 (05:52→12:23)
[2018-03-15 05:59] LABS: ABS Basophils 0 10^3/ul (0-0.2); ABS Eosinophils 0.2 10^3/ul (0-0.6); ABS Lymphocytes 0.9 10^3/ul (1.0-4.8); ABS Monocytes 0.5 10^3/ul (0-0.8); ABS Neutrophils 4.4 10^3/ul (1.5-7.7); ABS Nucleated RBC 0 10^3/ul; Eosinophil % 3.3 % (0-6); Hematocrit 37 % (42-52); Hemoglobin 12.6 g/dl (14.0-18.0); Lymphocyte % 15.1 % (25-47); Mean Corpuscular HGB Conc 34 g/dl (31-36); Mean Corpuscular Hemoglobin 30 pg (27-31); Mean Corpuscular Volume 88 fL (80-94); Mean Platelet Volume 8.4 fL (7.4-10.4); Nucleated Red Blood Cells % 0.1; Platelet Count 152 10^3/ul (150-450); Red Blood Count 4.18 10^6/ul (4.00-5.40); Red Cell Distribution Width 14 % (10.5-15); White Blood Count 6.1 10^3/ul (3.5-10.8)
[2018-03-15 06:23] LABS: EGFR Non-African American 131.5 (>60)
[2018-03-15] MEDS ORDERED: Iodixanol* (CONTRAST) 320 MG/ML 100 ML SDV IV ONE (08:11)
[2018-03-15] MEDS: Famotidine IV* 10 MG/ML 2 ML (20 mg) IV SLOW PU SCH (09:22)
--- NOTE | 2018-03-15 14:38 | PN ---
Progress Note - Progress Note Date of Service: 03/15/18 SOAP: Subjective: Having multiple loose bowel movements and passing large amounts of flatus. No abdominal pain, no N/V Objective: Temp Pulse Resp BP Pulse Ox 97.2 F 63 18 150/73 98 03/15/18 11:45 03/15/18 11:45 03/15/18 11:45 03/15/18 11:45 03/15/18 11:45 PEX: Comfortable Abd is soft and non-distended. Bowel sounds are present, normoactive-not high pitched or tinkling. No tenderness CT reviewed-mild small bowel dilation, no obvious obstruction/mass-old contrast in colon Assessment: Partial SBO-clinically improved and having GI function now without pain, tolerated oral contrast for CT without symptoms Plan: Start po with clears and see how he does-if tolerates, he can be discharged home later today. If develops distension and pain, N/V will need laparoscopy. All discussed with patient and He should see GI in follow up as outpatient.
[2018-03-15 16:03] VITALS: BP 155/62
--- NOTE | 2018-03-16 10:09 | DS ---
CC: Dr. Christine Che; Dr. Badillo; Dr. Sy * DISCHARGE SUMMARY: DATE OF ADMISSION: 03/11/18 DATE OF DISCHARGE: 03/15/18 PRIMARY CARE PROVIDER: Dr. Christine Che. ATTENDING PHYSICIAN: Dr. Vu * (dictated by Stefan Palafox NP). PRIMARY DIAGNOSIS: Small bowel obstruction. SECONDARY DIAGNOSES: 1. Diabetes mellitus, type 2. 2. Hypertension. 3. Hyperlipidemia. 4. Obesity. STUDIES WHILE IN THE HOSPITAL: 1. Abdomen/pelvis CT on 03/11/18 reads as pathologic dilation of the small bowel approximately measuring up to 4.3 cm in diameter. A transition zone was identified in the left upper quadrant; at this zone of transition, there appears to be wall thickening of small bowel measuring 8 mm in thickness. The differential diagnosis for this includes infectious or inflammatory etiologies as well as neoplastic etiologies. There are additional chronic and degenerative changes described in the body of report unlikely to be directly related to the patient's current clinical presentation. 2. Abdomen x-ray on 03/12/18 reads as no significant radiographic change in the magnitude of small bowel obstruction. 3. Abdomen x-ray on 03/13/18 reads as persistent dilated gas-filled loops of small bowel measuring up to 6 cm in diameter, not significant change from previous day KUB. 4. Chest x-ray on 03/13/18 reads as gastric tube terminates below the level of the hemidiaphragm at the affected location of the gastric fundus. 5. Abdomen x-ray on 03/14/18 reads as persistent air-filled dilated loops of small bowel measuring up to 5.8 cm in diameter, not substantially changed from the 2 previous KUB examinations. 6. Abdomen/pelvis CT on 03/15/18 reads as previously identified small bowel obstruction appears to be improved from his previous exam with the last bowel distention since prior exam. CONSULTATIONS WHILE IN THE HOSPITAL: Dr. Badillo from Gastroenterology saw the patient in consultation on 03/12/18 for a partial small bowel obstruction. He recommended keeping the patient n.p.o. and doing an infectious workup. He did recommend an NG tube placement, though the patient refused. He noted that if this persisted, the patient will need surgical evaluation. Dr. Sy from Surgery saw the patient on 03/14/18 in consultation for persistent small bowel obstruction. He recommended a repeat CT scan of the abdomen and pelvis with oral and IV contrast the following morning and to proceed accordingly from there. HISTORY OF PRESENT ILLNESS AND HOSPITAL COURSE: Mr. Ariza is a 67-year- old male with past medical history of diabetes, hypertension, obesity, and hyperlipidemia, who presented to the emergency room on 03/11/18 with complaints of intermittent nausea and vomiting for the past 3 days. Please see the history and physical by Dr. Burris for a complete summary of the events leading up to this hospitalization. In short, the patient noted multiple loose bowel movements per day for the previous 3 days. On imaging in the emergency room as noted above, he was noted to have a partial small bowel obstruction. Gastroenterology was consulted as noted above. The patient did refuse an NG tube. He was placed on IV fluids for hydration. The patient had multiple daily formed bowel movements starting on 03/13/18 and felt clinically improved. He denied any pain or tenderness on palpation. No nausea or vomiting. No diarrhea. Because the imaging did not show significant change, an NG tube was ultimately placed on 03/13/18. The patient had the NG tube overnight and the next morning, it was accidentally dislodged. The patient and his were both frustrated at the lack of improvement in the obstruction and the patient requested multiple times to leave the hospital, though ultimately did not leave against medical advice. Because the small bowel obstruction was not improving, Surgery was consulted as noted above. The patient had a CT scan in the morning of discharge, which showed improvement in the small bowel obstruction. Per recommendations from Surgery, the patient was allowed clear liquids, which he tolerated well. It was then deemed that he was stable for discharge with plan to advance his diet slowly at discharge. Ideally, the patient would have stayed in the hospital for at least 1 more meal, though he was anxious to leave. Mr. Ariza is stable for discharge today. Vital signs were as follows: Temp 97.5, heart rate , respiratory rate 20, oxygen saturation 98% on room air, blood pressure 155/62. DISCHARGE MEDICATIONS: Continued home medications: 1. Aspirin 81 mg p.o. daily. 2. Atorvastatin 40 mg p.o. daily. 3. Trulicity 0.5 mg subcutaneously once weekly. 4. Glimepiride 2 mg p.o. daily. 5. Hydrochlorothiazide 1 tab p.o. daily. 6. Metformin 1000 mg p.o. b.i.d. 7. Metoprolol succinate 100 mg p.o. daily. DISCHARGE PLAN: Mr. Ariza will be discharged home with his . Activity will be as tolerated. Diet will be clear liquids for at least the first 2 days with slow progression to full liquids and ultimately a soft diet. The patient and his have been provided with information on a clear liquid, full liquid, and soft diet. Medications are noted above. The patient can continue his current medications. There are no new or discontinued medications. The patient has been instructed to follow up with his primary care provider in 4 to 7 days. He has been instructed to return to the emergency room or nearest hospital for any worsening of symptoms, shortness of breath, lightheadedness, dizziness, chest discomfort, high fevers, chills, night sweats, loss of consciousness, or any other worrisome signs or symptoms. This is a summarized report of a complex medical history and hospital stay. For further details, please see the entire medical record. TIME SPENT: Approximately 40 minutes was spent on this discharge, greater than half of that time spent [id number] with the patient discussing discharge plans and instructions. STEFAN PALAFOX NP [id number]/CPS #: [id number] MADHURI
== END 2018-03-15 16:04 | disposition home or self-care (01) | DRG 390 ==
LOC: ED 11:13 → SSU 20:27 → OBSVTOIN 03-13 16:53
PROVIDERS: ADMIT Internal Medicine; ATTEND Student in an Organized Health Care Education/Training Program
DX: K56.600 Partial intestinal obstruction, unspecified as to cause (principal); E11.9 Type 2 diabetes mellitus without complications; I10 Essential (primary) hypertension; E78.5 Hyperlipidemia, unspecified; E66.9 Obesity, unspecified; Z68.37 Body mass index [BMI] 37.0-37.9, adult; H54.40 Blindness, one eye, unspecified eye; Z79.84 Long term (current) use of oral hypoglycemic drugs; Z79.899 Other long term (current) drug therapy; Z80.1 Family history of malignant neoplasm of trachea, bronchus and lung; Z87.891 Personal history of nicotine dependence
CPT/HCPCS: 36415; 71045; 74018; 74177; 80048; 80053; 81003; 81015; 82150; 82550; 83605; 83690; 83735; 84484; 85025; 85610; 85730; 86140; 87045; 87046; 87077; 87177; 87209; 87328; 87329; 87899; 93005; 96374; 96375; 99283; A9270-GY; G0378; J1644; J1885; J2405; J3475; J3490; Q9967

== ENCOUNTER 2018-03-25 09:31 | Emergency (ER) | payer MEDICARE, BC ==
[2018-03-25 10:31] LABS: Urine Appearance Cloudy; Urine Blood Negative (Negative); Urine Color Amber; Urine Ketones Trace (Negative); Urine Protein Negative (Negative); Urine Specific Gravity 1.027 (1.010-1.030); Urine Urobilinogen Negative (Negative)
[2018-03-25 10:32] LABS: ABS Basophils 0.1 10^3/ul (0-0.2); ABS Eosinophils 0.2 10^3/ul (0-0.6); ABS Lymphocytes 0.7 10^3/ul (1.0-4.8); ABS Monocytes 0.7 10^3/ul (0-0.8); ABS Neutrophils 4.3 10^3/ul (1.5-7.7); ABS Nucleated RBC 0 10^3/ul; Eosinophil % 3.1 % (0-6); Hematocrit 44 % (42-52); Hemoglobin 14.9 g/dl (14.0-18.0); Lymphocyte % 11.8 % (25-47); Mean Corpuscular HGB Conc 34 g/dl (31-36); Mean Corpuscular Hemoglobin 30 pg (27-31); Mean Corpuscular Volume 88 fL (80-94); Mean Platelet Volume 8.6 fL (7.4-10.4); Nucleated Red Blood Cells % 0; Platelet Count 165 10^3/ul (150-450); Red Blood Count 4.95 10^6/ul (4.00-5.40); Red Cell Distribution Width 14 % (10.5-15)
[2018-03-25 10:50] LABS: EGFR Non-African American 82.9 (>60)
[2018-03-25] MEDS ORDERED: NS 0.9% 1000 ML* 1,000 ML IV ONE (11:09)
--- NOTE | 2018-03-25 11:14 | ED ---
Abdominal Pain/Male - HPI Summary HPI Summary: Patient presents with return of small bowel obstruction symptoms. He was seen here on 03/15/2018 and diagnosed with a partial small bowel obstruction. This resolved with rest and fluids. Surgery consulted and advised if worse, to call them. He was able to be discharged home with clears at that time as he was passing gas and having bowel movements w/o difficulty or pain. He had referral to GI but had not gone yet as he went to [place] after d/c. He reports he worked through a clear diet to a full liquid diet to a soft diet ( ie. mashed potatoes then small pieces of chicken) and everything was fine (no pain, no nausea, no bloating, moving bowels and passing gas above and below). But when he advanced to country fried steak with pancakes and eggs, he developed issues of abdominal discomfort, bloating and stopped having bowel movements. On the 2nd day of no BM, he tried a stool softener w/o relief. He also tried a senoket laxative w/o pain or relief. He has not had a bowel movement in 5 days. Denies vomiting and has intermittent mild nausea but his biggest complaint is bloating which is now wrapping around his lower flank areas. He transition himself back to ice chips only for the past 3 days and has noted dark urine and fatigue since. He has not been taking his diabetes medication as he has not been eating food although he did have a small amount of broth last night at 1800 which he tolerated well. This was his last PO intake. Dentures No known bleeding d/o Takes meds for HTN, DM Last surgery 2-3 years ago, had difficulty breathing after anesthesia - History of Current Complaint Chief Complaint: EDAbdPain Stated Complaint: CONSTIPATION Time Seen by Provider: 03/25/18 09:59 Hx Obtained From: Patient, Family/Rn Med Surg - Pain Intensity: 5 - Allergies/Home Medications Allergies/Adverse Reactions: Allergies Allergy/AdvReac Type Severity Reaction Status Date / Time No Known Allergies Allergy Verified 03/25/18 09:36 Home Medications: Home Medications Atorvastatin* [Lipitor*] 40 mg PO DAILY 03/25/18 [History Confirmed 03/25/18] Dulaglutide (NF) [Trulicity (NF)] 1.5 mg SUBCUT WEEKLY 03/25/18 [History Confirmed 03/25/18] Glimepiride (NF) 2 mg PO DAILY 03/25/18 [History Confirmed 03/25/18] Hydrochlorothiazide TAB* [Hydrodiuril TAB*] 25 mg PO DAILY 03/25/18 [History Confirmed 03/25/18] Metoprolol Succinate XL TAB* [Toprol XL TAB*] 100 mg PO DAILY 03/25/18 [History Confirmed 03/25/18] PMH/Surg Hx/FS Hx/Imm Hx Previously Healthy: Yes - recently resolving partial SBO Endocrine/Hematology History: Reports: Hx Diabetes Denies: Hx Anticoagulant Therapy, Hx Blood Disorders, Hx Unexplained Bleeding Cardiovascular History: Reports: Hx Hypercholesterolemia, Hx Hypertension Denies: Hx Myocardial Infarction Respiratory History: Denies: Hx Asthma, Hx Chronic Obstructive Pulmonary Disease (COPD), Hx Sleep Apnea GI History: Reports: Other GI Disorders - HX OF SBO History: Denies: Hx Renal Disease Sensory History: Reports: Hx Contacts or Glasses, Hx Legally Blind - left eye blind Denies: Hx Hearing Aid Opthamlomology History: Reports: Hx Contacts or Glasses, Hx Legally Blind - left eye blind - Cancer History Cancer Type, Location and Year: 2016 skin cancer to right cheek Hx Chemotherapy: No Hx Radiation Therapy: No - Surgical History Surgery Procedure, Year, and Place: appendectomy Infectious Disease History: No Infectious Disease History: Denies: Traveled Outside the [place] in Last 30 Days - Family History Known Family History: Positive: Cardiac Disease - mother - Social History Lives: With Family Alcohol Use: Rare Hx Substance Use: Yes Substance Use Type: Reports: Excessive Caffeine - 1 pot black coffee daily Hx Tobacco Use: No Smoking Status (MU): Never Smoked Tobacco Review of Systems Positive: Fatigue - feels a little wiped out. Negative: Fever, Chills Cardiovascular: Negative Respiratory: Negative Positive: Abdominal Pain - distention/bloating, Nausea. Negative: Vomiting, Diarrhea Genitourinary: Negative Negative: burning, dysuria, discharge, frequency, flank pain, hematuria, incontinence, pain, urgency Musculoskeletal: Negative Skin: Negative Neurological: Negative Psychological: Normal All Other Systems Reviewed And Are Negative: Yes Physical Exam Triage Information Reviewed: Yes Vital Signs On Initial Exam: Initial Vitals Temp Pulse Resp BP Pulse Ox 97.7 F 97 16 152/87 97 03/25/18 09:32 03/25/18 09:32 03/25/18 09:32 03/25/18 09:32 03/25/18 09:32 Vital Signs Reviewed: Yes Appearance: Positive: Well-Appearing, No Pain Distress - appears comfortable on stretcher, Obese Skin: Positive: Warm, Skin Color Reflects Adequate Perfusion, Dry - no new ecchymosis over ab (quarter sized area healing ecchymosis from lovenox injection from previous visit) Head/Face: Positive: Normal Head/Face Inspection Eyes: Positive: Normal, EOMI, Conjunctiva Clear - anicteric sclera ENT: Positive: Hearing grossly normal, Pharynx normal - oral mucosa and lips dry Respiratory/Lung Sounds: Positive: Clear to Auscultation, Breath Sounds Present. Negative: Rales, Rhonchi, Wheezes Cardiovascular: Positive: Normal, RRR, S1, S2. Negative: Pulses are Symmetrical in both Upper and Lower Extremities, Leg Edema Left, Leg Edema Right Abdomen Description: Positive: Soft, Distended - mild - upper, Other: - mild tenderness throughout - no rebounding Male Genital Exam: Positive: Other - deferred - no sx Musculoskeletal: Positive: Normal, Strength/ROM Intact Neurological: Positive: Normal, Sensory/Motor Intact, Alert, Oriented to Person Place, Time Psychiatric: Positive: Normal Diagnostics - Vital Signs Vital Signs Temp Pulse Resp BP Pulse Ox 03/25/18 10:13 85 167/94 96 03/25/18 09:32 97.7 F 97 16 152/87 97 - Laboratory Lab Results: Lab Results 03/25/18 03/25/18 03/25/18 Range/Units 10:10 10:20 10:20 WBC 6.0 (3.5-10.8) 10^3/ul RBC 4.95 (4.00-5.40) 10^6/ul Hgb 14.9 (14.0-18.0) g/dl Hct 44 (42-52) % MCV 88 (80-94) fL MCH 30 (27-31) pg MCHC 34 (31-36) g/dl RDW 14 (10.5-15) % Plt Count 165 (150-450) 10^3/ul MPV 8.6 (7.4-10.4) fL Neut % (Auto) 72.1 (38-83) % Lymph % (Auto) 11.8 L (25-47) % Bryan % (Auto) 12.2 H (0-7) % Eos % (Auto) 3.1 (0-6) % Baso % (Auto) 0.8 (0-2) % Absolute Neuts (auto) 4.3 (1.5-7.7) 10^3/ul Absolute Lymphs (auto) 0.7 L (1.0-4.8) 10^3/ul Absolute Monos (auto) 0.7 (0-0.8) 10^3/ul Absolute Eos (auto) 0.2 (0-0.6) 10^3/ul Absolute Basos (auto) 0.1 (0-0.2) 10^3/ul Absolute Nucleated RBC 0 10^3/ul Nucleated RBC % 0 Sodium 136 (135-145) mmol/L Potassium 3.9 (3.5-5.0) mmol/L Chloride 103 (101-111) mmol/L Carbon Dioxide 28 (22-32) mmol/L Anion Gap 5 (2-11) mmol/L BUN 19 (6-24) mg/dL Creatinine 0.91 (0.67-1.17) mg/dL Est GFR ( Amer) 100.3 (>60) Est GFR (Non-Af Amer) 82.9 (>60) BUN/Creatinine Ratio 20.9 H (8-20) Glucose 149 H (70-100) mg/dL Lactic Acid (0.5-2.0) mmol/L Calcium 9.4 (8.6-10.3) mg/dL Magnesium 2.2 (1.9-2.7) mg/dL Total Bilirubin 0.80 (0.2-1.0) mg/dL AST 18 (13-39) U/L ALT 25 (7-52) U/L Alkaline Phosphatase 63 (34-104) U/L C-Reactive Protein 5.01 (<8.01) mg/L Total Protein 7.0 (6.4-8.9) g/dL Albumin 4.0 (3.2-5.2) g/dL Globulin 3.0 (2-4) g/dL Albumin/Globulin Ratio 1.3 (1-3) Lipase 150 H (11.0-82.0) U/L Urine Color Ellyn Urine Appearance Cloudy Urine pH 5.0 (5-9) Ur Specific [place] 1.027 (1.010-1.030) Urine Protein Negative (Negative) Urine Ketones Trace A (Negative) Urine Blood Negative (Negative) Urine Nitrate Negative (Negative) Urine Bilirubin Negative (Negative) Urine Urobilinogen Negative (Negative) Ur Leukocyte Esterase Negative (Negative) Urine Glucose Negative (Negative) 03/25/18 Range/Units 10:20 WBC (3.5-10.8) 10^3/ul RBC (4.00-5.40) 10^6/ul Hgb (14.0-18.0) g/dl Hct (42-52) % MCV (80-94) fL MCH (27-31) pg MCHC (31-36) g/dl RDW (10.5-15) % Plt Count (150-450) 10^3/ul MPV (7.4-10.4) fL Neut % (Auto) (38-83) % Lymph % (Auto) (25-47) % Bryan % (Auto) (0-7) % Eos % (Auto) (0-6) % Baso % (Auto) (0-2) % Absolute Neuts (auto) (1.5-7.7) 10^3/ul Absolute Lymphs (auto) (1.0-4.8) 10^3/ul Absolute Monos (auto) (0-0.8) 10^3/ul Absolute Eos (auto) (0-0.6) 10^3/ul Absolute Basos (auto) (0-0.2) 10^3/ul Absolute Nucleated RBC 10^3/ul Nucleated RBC % Sodium (135-145) mmol/L Potassium (3.5-5.0) mmol/L Chloride (101-111) mmol/L Carbon Dioxide (22-32) mmol/L Anion Gap (2-11) mmol/L BUN (6-24) mg/dL Creatinine (0.67-1.17) mg/dL Est GFR ( Amer) (>60) Est GFR (Non-Af Amer) (>60) BUN/Creatinine Ratio (8-20) Glucose (70-100) mg/dL Lactic Acid 0.8 (0.5-2.0) mmol/L Calcium (8.6-10.3) mg/dL Magnesium (1.9-2.7) mg/dL Total Bilirubin (0.2-1.0) mg/dL AST (13-39) U/L ALT (7-52) U/L Alkaline Phosphatase (34-104) U/L C-Reactive Protein (<8.01) mg/L Total Protein (6.4-8.9) g/dL Albumin (3.2-5.2) g/dL Globulin (2-4) g/dL Albumin/Globulin Ratio (1-3) Lipase (11.0-82.0) U/L Urine Color Urine Appearance Urine pH (5-9) Ur Specific [place] (1.010-1.030) Urine Protein (Negative) Urine Ketones (Negative) Urine Blood (Negative) Urine Nitrate (Negative) Urine Bilirubin (Negative) Urine Urobilinogen (Negative) Ur Leukocyte Esterase (Negative) Urine Glucose (Negative) Result Diagrams: 03/25/18 10:20 03/25/18 10:20 Lab Statement: Any lab studies that have been ordered have been reviewed, and results considered in the medical decision making process. Re-Evaluation - Re-Evaluation First Eval Change: Improved - pt reports improvement of energy and has been passing gas below since IV fluids - no significant nausea or pain. Abdominal Pain Fem Course/Dx - Course Course Of Treatment: Pt reports feeling better after IVF - strength improved and has passed more gas below. Still has some bloating but declines Gas-X. Ab XR: no dilated bowel loops - better from previous. Will have pt re-initiate fluids and try magnesium citrate to move bowels. If still not relief, will advance to enemas. However, we reviewed danger s/sx of when to return to ED. Pt will also f/u w/ GI as recommended in the meantime. - Diagnoses Provider Diagnoses: Constipation Discharge - Sign-Out/Discharge Documenting (check all that apply): Patient Departure - Discharge Plan Condition: Stable Disposition: HOME Patient Education Materials: Constipation (ED) Referrals: Hank Badillo DO [Doctor of Osteopathy] - Additional Instructions: Return to cleared liquid diet and make sure to stay hydrated with water, Gatorade, soup broth, etc. May advance to full liquid diet as tolerated. Be sure to include high fiber supplement such as smoothies with Enrique's and vegetables to help bulk your stool on the way through. Try magnesium citrate today to aid in passage of stool. If no relief, he may try a fleets enema. If still no bowel movement, return to the emergency department. Otherwise follow- up with GI as recommended at last visit were you were diagnosed with a partial small bowel obstruction. Contact information provided here. If in the meantime you develop vomiting, acute abdominal pain, abdominal hardness, fever, bloody stool, return to the emergency department. - Billing Disposition and Condition Condition: STABLE Disposition: Home
[2018-03-25 11:22] LABS: INR 1.13 (0.77-1.02)
[2018-03-25 14:12] VITALS: BP 133/76
== END 2018-03-25 14:15 | disposition home or self-care (01) ==
LOC: ED 09:31
DX: K59.00 Constipation, unspecified (principal); E11.9 Type 2 diabetes mellitus without complications; I10 Essential (primary) hypertension; E78.00 Pure hypercholesterolemia, unspecified; Z85.828 Personal history of other malignant neoplasm of skin
CPT/HCPCS: 36415; 74019; 80053; 81003; 83605; 83690; 83735; 85025; 85610; 85730; 86140; 96360; 96361; 99283